=== PATIENT | female | born 1995 | race Two or more races ===

== ENCOUNTER 2018-08-19 18:59 | Emergency (ER) | payer SELFPAY ==
[~2018-08-19] VITALS: Ht 157.5 cm; Wt 45.8 kg
[2018-08-19 19:05] VITALS: BP 142/100
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
[2018-08-19] MEDS ORDERED: IBUPROFEN600 MG ORAL (19:58)
[2018-08-19] MEDS ORDERED: CYCLOBENZAPRINE10 MG ORAL (19:58)
[2018-08-19 20:26] VITALS: BP 141/89
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
== END 2018-08-19 20:26 | disposition home or self-care (01) ==
LOC: EDBD 18:59 → EMR 19:10
DX: S16.1XXA Strain of muscle, fascia and tendon at neck level, initial encounter (principal); V49.40XA Driver injured in collision with unspecified motor vehicles in traffic accident, initial encounter; Y92.481 Parking lot as the place of occurrence of the external cause
CPT/HCPCS: 72040; 99283